=== PATIENT | male | born 1980 | race Caucasian/White ===

== ENCOUNTER 2025-01-21 11:28 | Emergency (ER) | payer OTHER, SELFPAY ==
--- NOTE | 2025-01-21 11:29 | XRR_ITS ---
PROCEDURE INFORMATION: Exam: XR Chest Exam date and time: 01/21/2025 11:41 AM Age: 44 years old Clinical indication: Pain; Angina pectoris; Additional info: Cp TECHNIQUE: Imaging protocol: Radiologic exam of the chest. Views: 1 view. COMPARISON: No relevant prior studies available. FINDINGS: Lungs: Unremarkable. No consolidation. Pleural spaces: Unremarkable. No pleural effusion. No pneumothorax. Heart/Mediastinum: Unremarkable. No cardiomegaly. Bones/joints: Unremarkable. XR/XR chest 1V portable [id number] IMPRESSION: No acute findings.
--- NOTE | 2025-01-21 11:29 | ECG_ITS ---
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 Measurements Intervals [place] Rate: 75 P: 35 IA: 183 QRS: 60 QRSD: 87 T: 41 QT: 364 QTc: 409 Interpretive Statements SINUS RHYTHM SEPTAL MYOCARDIAL INFARCTION , OF INDETERMINATE AGE [40+ ms Q WAVE IN V1/V2] No previous ECG available for comparison Electronically Signed On 01-21-2025 17:49:19 CORRUGATED BOX MACHINE OPERATOR by Anna Pabon M.D. [email or web address]
[2025-01-21 11:41] VITALS: BMI 34.2
[2025-01-21 11:43] VITALS: BP 197/112; PULSE 78; RESP 16; TEMP 36.8; O2SAT 97
--- NOTE | 2025-01-21 11:56 | W.ED.CHESTPA ---
HPI - Chest Pain General: Chief Complaint: Chest Pain Stated Complaint: cp, nausea Time Seen by Provider: 01/21/25 11:42 Source: patient Mode of arrival: ambulatory Limitations: no limitations History of Present Illness: Patient is a 44-year-old male who presents emerged department complaining of left-sided chest pain intermittently for the past 5 days but more constant this morning. Also states that he woke up with dizziness, and has had nausea throughout the day. No personal cardiac history but he is on blood pressure medications, currently hypertensive 197/112. He notes that the pain is to the left chest, states that it feels like he has pain in his collarbone, and intermittently will have waves that shoot downward underneath his left breast. No shortness of breath associated, but also is having some visual changes. Reports tinnitus. Notes that he did not take his blood pressure medication this morning because he was afraid he would throw it up. States he had a stress test 4 months ago at the [facility] that was inconclusive/unremarkable, but has never had echocardiogram or cardiac cath. No history of stents. Does not report any a family history of heart issues. He is a current everyday smoker. Stating he is actively having pain at this time. MD complaint: chest pain Onset (ago): day(s) Timing of current episode: episodic Pain location: left chest Severity: moderate Quality: tightness and heaviness Associated symptoms: Reports nausea; Deny abdominal pain, dyspnea, fever(s), palpitations or vomiting Related Data Home Medications ?Medication ?Instructions ?Recorded ?Confirmed amlodipine 10 mg tablet 10 mg PO DAILY 12/28/24 01/21/25 fexofenadine 60 mg tablet 60 mg PO DAILY PRN allergies 12/28/24 01/21/25 losartan 100 mg tablet 100 mg PO DAILY 12/28/24 01/21/25 omeprazole 20 mg capsule,delayed 20 mg PO DAILY 12/28/24 01/21/25 release testosterone cypionate 200 mg/mL 1.25 mg IM Q7D 01/21/25 01/21/25 intramuscular oil Previous Rx's ?Medication ?Instructions ?Recorded meclizine 50 mg tablet (Antivert) 50 mg PO DAILY PRN dizziness #30 01/21/25 tabs Allergies Allergy/AdvReac Type Severity Reaction Status Date / Time acetaminophen (From Lorcet Allergy ADR-Itching Verified 01/21/25 10:06 (hydrocodone)) bupropion (From Wellbutrin) Allergy ADR-Agitate Verified 01/21/25 10:06 d hydrocodone (From Lorcet Allergy ADR-Itching Verified 01/21/25 10:06 (hydrocodone)) trazodone Allergy ADR-Itching Verified 01/21/25 10:06 Review of Systems General: Reports: 10 or more systems reviewed and unremarkable except in HPI and below Const: Denies: fever(s), chills or fatigue Eyes: Reports: change in vision ENMT: Denies: throat pain, ear or mastoid pain or nasal discharge Card: Reports: chest pain; Denies: palpitations, swelling of feet/ankles or lightheadedness Resp: Denies: dyspnea, productive cough or wheezing GI: Reports: nausea; Denies: abdominal pain, vomiting, diarrhea or constipation : Denies: flank pain, difficulty urinating, dysuria or urinary frequency Musc: Denies: neck pain, back pain or joint pain Skin/Breast: Denies: rash Neuro: Reports: dizziness; Denies: headache(s), numbness in extremities or weakness in extremities PFSH ED PFSH: Medical History Vertigo Pain, foot, right, chronic Diplopia Tear of left rotator cuff, unspecified tear extent, unspecified whether traumatic Essential hypertension Encounter to establish care Hypotestosteronemia in male Bowel obstruction Hypertension Bilateral carpal tunnel syndrome Surgical History Status post operation on nasal septum Status post cholecystectomy Social History Smoking and tobacco/nicotine status: never used tobacco/nicotine Alcohol intake: never Substance/Drug Use: never Physical Exam Const: COMMON NORMALS: no acute distress, patient oriented x3 and no limitations GENERAL APPEARANCE: cooperative, comfortable and well developed NUTRITIONAL APPEARANCE: obese ORIENTATION/CONSCIOUSNESS: Yes awake, Yes oriented to person, Yes oriented to place and Yes oriented to time HENMT: COMMON NORMALS: normocephalic, atraumatic and hearing grossly normal bilaterally HEAD & SCALP: normocephalic and atraumatic Eye: COMMON NORMALS: Equal, round and reactive pupils present, EOMs intact bilaterally and conjunctivae normal CONJUNCTIVA: Yes conjunctivae normal PUPIL: Yes Equal, round and reactive pupils present Neck/C-Spine: COMMON NORMALS: full ROM, supple and no JVD Resp: COMMON NORMALS: normal respiratory effort, No retractions, No use of accessory muscles and clear to auscultation bilaterally AUSCULTATION: clear to auscultation bilaterally Cardio: COMMON NORMALS: no JVD, regular rate, regular rhythm, No clicks present (Cardio), No murmurs present (Cardio) and No rub (Cardio) RATE: regular rate RHYTHM: regular rhythm GI: COMMON NORMALS: Normal to inspection, nondistended, normoactive bowel sounds present, Soft to palpation and non-tender AUSCULTATION: Yes normoactive bowel sounds PALPATION: Yes Soft to palpation RECTAL EXAM: Yes deferred Extremity: COMMON NORMALS: normal to inspection, full ROM and capillary refill normal Neuro: COMMON NORMALS: patient oriented x3, moves all extremities, no focal motor deficits and no sensory deficits noted SENSORIUM/ORIENTATION: Yes oriented to person, Yes oriented to place and Yes oriented to time Psych: COMMON NORMALS: mental status grossly normal and Normal thought process present THOUGHT PROCESS: Normal thought process present Skin: COMMON NORMALS: no rashes or lesions noted GENERAL SKIN EXAM: no rashes or lesions noted Course Vital Signs: Vital signs: Vital Signs Temperature 98.3 F 01/21/25 11:43 Pulse Rate 73 01/21/25 14:00 Respiratory Rate 16 01/21/25 11:43 Blood Pressure 148/97 01/21/25 14:00 Pulse Oximetry 96 01/21/25 14:00 Oxygen Delivery Me thod Room Air 01/21/25 14:00 MDM - Chest Pain Medical Decision Making Patient presented to the [facility] department with 5 days of intermittent chest pain to the left chest, associated with nausea and dizziness, the latter of which began this morning. Does have history of vertigo, states it does feel similar but has been more unrelenting today, he has not take any medications for it. He arrives hypertensive 197/112, states he did not take his blood pressure meds this morning because he thought he would throw them up. No cardiac history is reported to me. He was actively having chest pain at time of examination, baby aspirin and nitroglycerin administered and he states this did help his pain. Lab work ordered, unremarkable including baseline and 2-hour troponin. EKG with no rhythm changes, no ST segment elevation, normal axis and intervals, and chest x-ray without any acute findings. Heart score of 3, I did still offer the patient admission for observation and possible consultation by security control assessor as he does have risk factors of smoking and hypertension, however states he would rather go home and follow-up as an outpatient. For this he will be referred to cardiology, encouraged to keep a log of his blood pressure and heart rate to report to cardiology, and continue taking medications as prescribed. His symptoms have ameliorated here in the emergency department, he is longer feeling dizzy after I did give meclizine, he is requesting meclizine prescribed. His blood pressure has improved as well. Strongly urged him to return if his symptoms return or he has any other acute worsening, of which he verbalizes understanding and agrees. Lab Data 01/21/25 11:52 01/21/25 11:52 Radiology Impressions Chest X-Ray 01/21/25 11:29 IMPRESSION: No acute findings. Laboratory Results WBC 7.66 10^3/uL (3.29-11.43) 01/21/25 11:52 RBC 5.97 10^6/uL (3.85-5.65) H 01/21/25 11:52 Hgb 17.20 g/dL (11.27-16.99) H 01/21/25 11:52 Hct 50.5 % (37-53) 01/21/25 11:52 MCV 84.6 fl (82-101) 01/21/25 11:52 MCH 28.8 pg (27-33) 01/21/25 11:52 MCHC 34.1 g/dL (30-55) 01/21/25 11:52 RDW 13.6 % (12.1-15.1) 01/21/25 11:52 Plt Count 267 10^3/cmm (157-399) 01/21/25 11:52 MPV 9.0 fL (7.4-10.4) 01/21/25 11:52 Neut % (Auto) 68.1 % 01/21/25 11:52 Lymph % (Auto) 19.2 % 01/21/25 11:52 Mccracken % (Auto) 9.3 % 01/21/25 11:52 Eos % (Auto) 1.8 % 01/21/25 11:52 Baso % (Auto) 0.7 % 01/21/25 11:52 Neut # (Auto) 5.22 10^3/uL (1.8-7.7) 01/21/25 11:52 Lymph # (Auto) 1.5 10^3/uL (0.8-4.8) 01/21/25 11:52 Mccracken # (Auto) 0.7 10^3/uL (0.2-0.9) 01/21/25 11:52 Eos # (Auto) 0.1 10^3/uL (0.0-0.8) 01/21/25 11:52 Baso # (Auto) 0.1 10^3/uL (0.0-0.1) 01/21/25 11:52 Nucleated RBC % (auto) 0 % 01/21/25 11:52 Nucleated RBCs # 0.0 /100WBC 01/21/25 11:52 Sodium 140 mmol/L (136-145) 01/21/25 11:52 Potassium 4.0 mmol/L (3.5-5.1) 01/21/25 11:52 Chloride 103 mmol/L (98-107) 01/21/25 11:52 Carbon Dioxide 29 mmol/L (22-29) 01/21/25 11:52 Anion Gap 12.0 (5-19) 01/21/25 11:52 BUN 11 mg/dL (6-20) 01/21/25 11:52 Creatinine 0.7 mg/dL (0.7-1.2) 01/21/25 11:52 GFR Calculation 122.5 mL/min (90-130) 01/21/25 11:52 Glucose 111 mg/dL (65-115) 01/21/25 11:52 Calculated Osmolality 290 mOsm/kg (285-295) 01/21/25 11:52 Calcium 8.9 mg/dL (8.5-10.5) 01/21/25 11:52 Total Bilirubin 0.4 mg/dL (0.15-1.2) 01/21/25 11:52 AST 20 U/L (0-40) 01/21/25 11:52 ALT 26 U/L (0-41) 01/21/25 11:52 Alkaline Phosphatase 134 U/L (40-130) H 01/21/25 11:52 Troponin T Baseline 10 ng/L (0-15) 01/21/25 11:52 Troponin T 120 Minute 9.53 ng/L (0-15) 01/21/25 13:45 Delta Troponin T -0.47 ABS# (0-10) L 01/21/25 13:45 Total Protein 7.0 g/dL (6.6-8.7) 01/21/25 11:52 Albumin 4.5 g/dL (3.5-5.2) 01/21/25 11:52 Globulin 2.5 g/dL (1.3-4.6) 01/21/25 11:52 Lipase 17 U/L (13-60) 01/21/25 11:52 All radiology interpretation(s) finalized by discharge Discharge Plan Discharge Patient Disposition: Home Clinical Impression: Essential hypertension, Vertigo Chest pain Qualifiers: Chest pain type: unspecified Qualified Code(s): R07.9 - Chest pain, unspecified Condition: Stable Prescriptions: New meclizine [Antivert] 50 mg tablet 50 mg PO DAILY PRN (Reason: dizziness) Qty: 30 0RF No Action amlodipine 10 mg tablet 10 mg PO DAILY losartan 100 mg tablet 100 mg PO DAILY fexofenadine 60 mg tablet 60 mg PO DAILY PRN (Reason: allergies) omeprazole 20 mg capsule,delayed release(DR/EC) 20 mg PO DAILY testosterone cypionate 200 mg/mL oil 1.25 mg IM Q7D Discharge Orders: Discharge ED (Routine); Ordered 01/21/25 Ordered By: Roosevelt Betancourt Referrals: BIANKA Holliday, JOE [Primary Care Provider, Family Practice] Patient Instructions: Chest Pain (ED), Vertigo (ED), Hypertension (ED), Patient Portal & Juliocesar Instructions Activity Restrictions/Additional Instructions: Please refer to attached patient instructions. Please await a call from cardiology to schedule your outpatient appointment. If you develop any chest pain that persists, shortness of breath, worsening dizziness, sweating, nausea/vomiting, or any other concerns please return immediately to the emergency department for reevaluation as we discussed. Please take the meclizine as prescribed. Continue taking your home medications. Please keep a log of your blood pressure and heart rate at home to report to cardiology. Print Language: Khmer Coding Level of Care Code ED Arch Support Maker for Chg Fwd Heart Score HEART Score Components History: Moderately Suspicious EKG: Normal Age: Less than 45 yrs Risk Factors: >/=3 Risk Factors Troponin: Baseline Trop <16 ng/L HEART Score RESULT HEART Score: 3
[2025-01-21 12:02] LABS: Hematocrit 50.5 % (37-53); Hemoglobin 17.20 g/dL (11.27-16.99); Mean Corpuscular HGB Conc 34.1 g/dL (30-55); Mean Corpuscular Hemoglobin 28.8 pg (27-33); Mean Corpuscular Volume 84.6 fl (82-101); Nucleated Red Blood Cells % 0 %; Platelet Count 267 10^3/cmm (157-399); Red Blood Count 5.97 10^6/uL (3.85-5.65); White Blood Count 7.66 10^3/uL (3.29-11.43)
[2025-01-21 12:17] LABS: Alanine Aminotransferase 26 U/L (0-41); Albumin Level 4.5 g/dL (3.5-5.2); Alkaline Phosphatase 134 U/L (40-130); Anion Gap 12.0 (5-19); Aspartate Amino Transferase 20 U/L (0-40); Blood Urea Nitrogen 11 mg/dL (6-20); Calcium 8.9 mg/dL (8.5-10.5); Carbon Dioxide 29 mmol/L (22-29); Chloride 103 mmol/L (98-107); Globulin 2.5 g/dL (1.3-4.6); Glucose 111 mg/dL (65-115); Lipase 17 U/L (13-60); Osmolality Calculated 290 mOsm/kg (285-295); Potassium 4.0 mmol/L (3.5-5.1); Sodium 140 mmol/L (136-145); Total Protein 7.0 g/dL (6.6-8.7); Troponin(5th) Baseline 10 ng/L (0-15)
--- OUTSIDE RECORDS SUMMARY | 2025-01-21 12:21 | XMS_ITS | Clinical Summary ---
Author Organization [facility] Address [address] [facility] [address] [place] [address] Phone Care Team Providers Care Nonprofit Director Name Role Phone Unavailable Primary Care Provider Unavailabl e Allergies Active Allergy Reactions Criticality Noted Date Comments Bupropion Hcl Other (See Comments) 12/06/2024 agitation Hydrocodone Headache Low 12/06/2024 Really bad migraines Trazodone Rash Low 12/06/2024 Medications losartan (COZAAR) 100 mg tablet Take 100 mg by mouth daily. Active LISINOPRIL ORAL Take 50 mg by mouth. Active OMEPRAZOLE ORAL Take by mouth. Active fexofenadine HCl (JOSE C ORAL) Take by mouth. Active Encounters Date Type Department Care Team Description 01/15/2025 External Device Data [facility] ABSTRACTION Provider, Abstract 01/01/2025 External Device Data [facility] AB[facility]CTION Provider, Abstract 01/01/2025 External Device Data [facility] ABSTRACTION Provider, Abstract 01/01/2025 External Device Data [facility] ABSTRACTION Provider, Abstract 12/19/2024 External Device Data [facility] ABSTRACTION Provider, Abstract 12/11/2024 External Device Data [facility] ABSTRACTION Provider, Abstract 12/11/2024 External Device Data [facility] AB[facility]CTION Provider, Abstract 12/11/2024 External Device Data [facility] ABSTRACTION Provider, Abstract 12/06/2024 10:11 AM CDT - 12/06/2024 12:43 PM CDT Emergency [facility] Emergency Medicine [address] [facility] [address] [place] [id number] Gorge Donnelly MD Acute bronchitis, unspecified organism (Primary Dx); Hemoptysis; Hypertension, unspecified type Discharge Disposition: Home or Self Care 12/06/2024 Travel from Last 3 Months Social History Tobacco Use Types Packs/Day Years Used Date Smoking Tobacco: Every Day Cigarettes Tobacco Cessation:Ready to Q uit: Not Asked; Counseling Given: Not Answered Alcohol Use Standard Drinks/Week Comments Not Currently 0 (1 standard drink = 0.6 oz pur e alcohol) rarely Food Insecurity Answer Date Recorded Do you find you are eating l ess than you should because you can t pay for food? No 12/06/2024 Transportation Needs Answer Date Record ed Have you gone without health care because you didn t have a way to get there? 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 No 2024 Housing Stability Answer Date Recorded Do you worry you won t have a steady place to sleep or struggle to pay rent or mortgage? No 12/06/2024 Utility Needs Answer Date Recorded Do you have difficulty payin g for utility costs (electric, water or gas bills)? No 12/06/2024 Medication Needs Answer Date Recorded Have you skipped taking medi cation due to cost or worry you can t afford new medications? No 12/06/2024 Feeling Safe Answer Date Recorded Are you in a relationship wi th someone who hurts you emotionally and/or physically? No 12/06/2024 Sex and Gender Information Value Date Recorded Sex Assigned at Not on file Legal Sex Male 10:06 AM CDT Gender Identity Not on file Sexual Orientation Not on file Last Filed Vital Signs Vital Sign Reading Time Taken Comments Blood Pressure 181/117 12/06/2024 12:30 PM CDT Pulse 63 12/06/2024 12:30 PM CDT Temperature 37.2 C (98.9 F) 12/06/2024 10:11 AM CDT Respiratory Rate 26 12/06/2024 12:3 0 PM CDT Oxygen Saturation 94% 12/06/2024 12: 30 PM CDT Inhaled Oxygen Concentration - - Weight 130.1 kg (286 lb 12.8 oz) 2024 10:11 AM CDT Height 193 cm (6' 4 ) 12/06/2024 10:11 AM CDT Body Mass Index 34.91 12/06/2024 10:11 AM CDT Plan of Treatment Health Maintenance Due Date Last Done Comments Pre-Diabetes and Diabetes Screening 1980 DTAP/TDAP/TD VACCINES (6 - Tdap) 07/11/1991 10/01/1985, 02/11/1982, 01/17/1981, Additional history exists HEPATITIS B VACCINES (2 of 3 - 3-dose series) 03/04/1999 02/04/1999 HPV VACCINES (1 - 3-dose SCD M series) 07/11/2007 INFLUENZA VACCINE (#1) 2024 Procedures Procedure Name Priority Date/Time Associated Diagnosis Comments TROPONIN 2 HR, 5TH GEN Timed Study 12/06/2024 12:02 PM CDT XR CHEST PA OR AP 1 VW Stat 12/06/2024 11:07 AM CDT TROPONIN BASELINE, 5TH GEN Stat 12/06/2024 10:13 AM CDT BRAIN NATRIURETIC PEPTIDE, BNP OR PROBNP Stat 12/06/2024 10:13 AM CDT COMPREHENSIVE METABOLIC PANEL Stat 12/06/2024 10:13 AM CDT D-DIMER Stat 12/06/2024 10:13 AM CDT PTT Stat 12/06/2024 10:13 AM CDT PROTIME-INR Stat 12/06/2024 10:13 AM CDT CBC WITH DIFFERENTIAL Stat 12/06/2024 10:13 AM CDT from Last 3 Months Results * TROPONIN 2 HR, 5TH GEN (12/06/2024 12:02 PM CDT) TROPONIN T, 2 HR 5TH GEN 10 <=15 ng/L 12/06/2024 12:23 PM CDT [facility] DELTA 2HR TROPONIN T 0 See Interp. 12/06/2024 12:23 PM CDT [facility] Blood BLOOD SPECIMEN / Unknown Collection / Unknown 12/06/2024 12:02 PM CDT 12/06/2024 12:08 PM CDT Narrative [facility] - 12/06/2024 12:23 PM CDT Troponin Detectable but normal range. Delta not changing. Delay in collection of timed specimen beyond recommended collection interval. Results must be interpreted in clinical context. Gorge Donnelly MD CHEMISTRY ORDERABLES Fin al Result [facility] CLIA # [id number] [address] [place] [phone] * XR CHEST PA OR AP 1 VW (12/06/2024 11:07 AM CDT) Anatomical Region Laterality Modality Chest Computed Radiogr aphy 12/06/2024 11:0 7 AM CDT Impressions 12/06/2024 11:12 AM CDT IMPRESSION: No acute pulmonary process. Narrative 12/06/2024 11:12 AM CDT Exam: XR CHEST PA OR AP 1 VW Date/Time of Exam: 12/06/2024 11:07 AM Reason For Exam: Cough. Diagnosis: See Reason for Exam. Comparison: None. Findings: The cardiac silhouette appears enlarged. No pulmonary consolidation, pleural effusion or pneumothorax is identified. The osseous structures appear grossly intact. Procedure Note Gerry Ba, DO - 12/06/2024 Exam: XR CHEST PA OR AP 1 VW Date/Time of Exam: 12/06/2024 11:07 AM Reason For Exam: Cough. Diagnosis: See Reason for Exam. Comparison: None. Findings: The cardiac silhouette appears enlarged. No pulmonary consolidation, pleural effusion or pneumothorax is identified. The osseous structures appear grossly intact. IMPRESSION: No acute pulmonary process. Gorge Donnelly MD DIAGNOSTIC IMAGING ORDER DANIELA Final Result * TROPONIN BASELINE, 5TH GEN (12/06/2024 10:13 AM CDT) TROPONIN T, BASELINE 5TH GEN 10 <=15 ng/L 12/06/2024 10:52 AM CDT [facility] Blood BLOOD SPECIMEN / Unknown Collection / Unknown 12/06/2024 10:13 AM CDT 12/06/2024 10:33 AM CDT Narrative [facility] - 12/06/2024 10:52 AM CDT Troponin Detectable but normal range. Gorge Donnelly MD CHEMISTRY ORDERABLES Fin al Result [facility] CLIA # [id number] [address] [place] [address] [id number] * (ABNORMAL) CBC WITH DIFFERENTIAL (12/06/2024 10:13 AM CDT) WBC 10.2(H) 4.2 - 9.1 K/uL 12/06/2024 10:40 AM [facility] RBC 6.18(H) 4.63 - 6.08 M/uL 12/06/2024 10:40 AM [facility] HEMOGLOBIN 17.4 13.7 - 17.5 g/dL 12/06/2024 10:40 AM [facility] HEMATOCRIT 49.8 40.1 - 51.0 % 12/06/2024 10:40 AM [facility] MCV 80.6 79.0 - 92.2 fL 12/06/2024 10:40 AM [facility] MCH 28.2 25.7 - 32.2 pg 12/06/2024 10:40 AM [facility] MCHC 34.9 32.3 - 36.5 g/dL 12/06/2024 10:40 AM [facility] RDW 14.8(H) 11.0 - 14.5 % 12/06/2024 10:40 AM [facility] RDW-STDEV 42.5 36.9 - 56.9 fL 12/06/2024 10:40 AM [facility] PLATELETS 272 130 - 400 K/uL 12/06/2024 10:40 AM [facility] MPV 9.1(L) 10.0 - 14.8 fL 12/06/2024 10:40 AM [facility] NEUTROPHILS 70(H) 34 - 68 % 12/06/2024 10:40 AM [facility] LYMPHOCYTES 18(L) 22 - 53 % 12/06/2024 10:40 AM [facility] MONOCYTES 9 5 - 12 % 12/06/2024 10:40 AM [facility] EOSINOPHILS 2 1 - 7 % 12/06/2024 10:40 AM [facility] BASOPHILS 1 0 - 1 % 12/06/2024 10:40 AM [facility] IMMATURE GRANULOCYTES 0 % 12/06/2024 10:40 AM [facility] NEUTROPHIL ABSOLUTE 7.08(H) 1.78 - 5.38 K/uL 12/06/2024 10:40 AM [facility] LYMPHOCYTE ABSOLUTE 1.85 1.20 - 3.40 K/uL 12/06/2024 10:40 AM [facility] MONOCYTE ABSOLUTE 0.94(H) 0.30 - 0.82 K/uL 12/06/2024 10:40 AM [facility] EOSINOPHIL ABSOLUTE 0.17 0.04 - 0.54 K/uL 12/06/2024 10:40 AM [facility] BASOPHILS ABSOLUTE 0.08 0.01 - 0.08 K/uL 12/06/2024 10:40 AM [facility] IMMATURE GRANULOCYTES ABSOLUTE 0.04 K/uL 12/06/2024 10:40 AM [facility] Blood BLOOD SPECIMEN / Unknown Collection / Unknown 12/06/2024 10:13 AM CDT 12/06/2024 10:33 AM CDT us Gorge Donnelly MD HEMATOLOGY ORDERABLES Fi nal Result [facility] CLIA # [id number] [address] [place] [phone] * PTT (12/06/2024 10:13 AM CDT) PTT 28.9 25.1 - 35.4 seconds 12/06/2024 10:44 AM CDT [facility] Blood BLOOD SPECIMEN / Unknown Collection / Unknown 12/06/2024 10:13 AM CDT 12/06/2024 10:33 AM CDT Gorge Donnelly MD HEMATOLOGY ORDERABLES Fi nal Result Performing Organization Address City/[facility]/ZIP Co ny Phone Number [facility] CLIA # [id number] [address] [place] [address] * PROTIME-INR (12/06/2024 10:13 AM CDT) PROTIME 13.0 12.1 - 14.3 Seconds 12/06/2024 10:44 AM CDT [facility] INR 1.0 0.9 - 1.1 12/06/2024 10:44 AM CDT [facility] Blood BLOOD SPECIMEN / Unknown Collection / Unknown 12/06/2024 10:13 AM CDT 12/06/2024 10:33 AM CDT Gorge Donnelly MD HEMATOLOGY ORDERABLES Fi nal Result Performing Organization Address [facility] Number [facility] CLIA # [id number] [address] [place] [phone] * D-DIMER (12/06/2024 10:13 AM CDT) D-DIMER QUANT <0.15 <0.50 ug/mL FEU 12/06/2024 10:46 AM CDT [facility] Blood BLOOD SPECIMEN / Unknown Collection / Unknown 12/06/2024 10:13 AM CDT 12/06/2024 10:33 AM CDT Narrative [facility] - 12/06/2024 10:46 AM CDT D-Dimer assay cutoff value for exclusion of DVT and/or PE is <0.50 ug/mL FEU. Gorge Donnelly MD HEMATOLOGY ORDERABLES Fi nal Result Performing Organization Address [facility]/ZIP Co de Phone Number [id number] [address] [place] [phone] * (ABNORMAL) BRAIN NATRIURETIC PEPTIDE, BNP OR PROBNP (12/06/2024 10:13 AM CDT) PROBNP, N TERMINAL 161(H) 0 - 125 pg/mL 12/06/2024 10:53 AM CDT [facility] Comment: INTERPRETIVE COMMENT based on diagnosis: Diagnostic NT pro-BNP cutoffs for Heart Failure in the absence of renal failure is suggested for the following ranges <75 years: <125 pg/mL >=75 years: <450 pg/mL Exclusionary rule out cut-point for Acute Decompensated Heart Failure(ADHF) All ages: <300 pg/mL Diagnostic NT pro-BNP cutoffs for Acute Decompensated Heart Failure(ADHF) in the absence of renal failure is suggested for the following ages <50 years: > 450 pg/mL 50-75 years: > 900 pg/mL >75 years: >1800 pg/mL Blood BLOOD SPECIMEN / Unknown Collection / Unknown 12/06/2024 10:13 AM CDT 12/06/2024 10:33 AM CDT Gorge Donnelly MD CHEMISTRY ORDERABLES Fin al Result Performing Organization Address City/[facility]/ZIP Co de Phone Number [facility] CLIA # [id number] [address] [place] [phone] * (ABNORMAL) COMPREHENSIVE METABOLIC PANEL (12/06/2024 10:13 AM CDT) SODIUM 139 136 - 145 mmol/L 12/06/2024 10:53 AM CDT [facility] POTASSIUM 3.3(L) 3.5 - 5.1 mmol/L 12/06/2024 10:53 AM CDT [facility] CHLORIDE 100 98 - 107 mmol/L 12/06/2024 10:53 AM [facility] CO2 28 22 - 29 mmol/L 12/06/2024 10:53 AM [facility] CALCIUM 9.1 8.6 - 10.0 mg/dL 12/06/2024 10:53 AM [facility] BUN 10 6 - 20 mg/dL 12/06/2024 10:53 AM [facility] CREATININE 0.93 0.67 - 1.17 mg/dL 12/06/2024 10:53 AM [facility] GLUCOSE 134(H) 74 - 99 mg/dL 12/06/2024 10:53 AM [facility] TOTAL PROTEIN 7.1 6.6 - 8.7 g/dL 12/06/2024 10:53 AM [facility] ALBUMIN 4.3 3.5 - 5.2 g/dL 12/06/2024 10:53 AM [facility] BILIRUBIN TOTAL 0.6 0.0 - 1.2 mg/dL 12/06/2024 10:53 AM [facility] ALKALINE PHOSPHATASE 123 40 - 129 U/L 12/06/2024 10:53 AM [facility] AST 25 0 - 50 U/L 12/06/2024 10:53 AM [facility] ALT 26 0 - 50 U/L 12/06/2024 10:53 AM [facility] GFR >60 >=60 mL/min/1.7 3 sq meter 12/06/2024 10:53 AM [facility] Comment:eGFR calculated with 2020 CKD-EPI equation. Vegetarian diet, extremely high or low muscle mass, and may affect results. Cystatin C with Glomerular Filtration Rate is a suitable alternative for these patients. ANION GAP 11 5 - 20 mmol/L 12/06/2024 10:53 AM [facility] Blood BLOOD SPECIMEN / Unknown Collection / Unknown 12/06/2024 10:13 AM CDT 12/06/2024 10:33 AM CDT us Gorge Donnelly MD CHEMISTRY ORDERABLES Fin al Result [facility]ITAL[facility]ITAL[facility] # [id number] [address] [place] [phone] from Last 3 Months Insurance [facility] [employer] [facility] OFFICE OF COMMUNITY CARE
--- OUTSIDE RECORDS SUMMARY | 2025-01-21 12:21 | XMS_ITS | Encounter Summary ---
Author Organization [employer] Address 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 No 2024 Housing Stability Answer [...] on file Sexual Orientation Not on file documented as of this encounter Plan of Treatment Not on file documented as of this encounter Visit Diagnoses Not on filedocumented in this encounter
[2025-01-21 12:43] VITALS: BP 147/89; PULSE 83
[2025-01-21 13:14] VITALS: BP 132/80; PULSE 70
--- NOTE | 2025-01-21 13:22 | ECG_ITS ---
[facility] Test Date: 2025-01-21 Pat Name: Mckinley David Department: Room: Gender: Male [employer] Principal: : 1980 Requested By: Syl Funez Order Number: [id number] Lobo MD: Anna Pabon M.D. Measurements Intervals [place] Rate: 70 P: 21 TN: 164 QRS: 52 QRSD: 98 T: 36 QT: 393 QTc: 427 Interpretive Statements SINUS RHYTHM Compared to ECG 01/21/2025 11:39:15 Myocardial infarct finding no longer present Electronically Signed On 01-21-2025 17:50:13 AGENCY LEGAL COUNSEL by Anna Pabon M.D. [email or web address]
[2025-01-21 14:00] VITALS: BP 148/97; PULSE 73; O2SAT 96
[2025-01-21 14:25] LABS: Troponin 5 2HR 9.53 ng/L (0-15)
[2025-01-21 14:27] LABS: Troponin 5 2HR Delta -0.47 ABS# (0-10)
[2025-01-21 14:58] VITALS: BP 148/97; PULSE 75; O2SAT 97
== END 2025-01-21 14:59 | disposition home or self-care (01) ==
PROVIDERS: Emergency Medicine; Emergency Provider Physician Assistant; PCP Nurse Practitioner Family
DX: R07.9 Chest pain, unspecified (principal); R42 Dizziness and giddiness; I10 Essential (primary) hypertension
CPT/HCPCS: 36415; 71045; 80053; 83690; 84484; 85025; 93005; 99285; J8597; J9999